=== PATIENT | female | born 1990 | race Caucasian/White ===

== ENCOUNTER 2020-11-29 15:40 | Inpatient (IN) ==
[2020-11-29] MEDS ORDERED: Lidocaine 1% 20 ML MDV INFILT PRN (18:49)
[2020-11-29] MEDS ORDERED: Naloxone 0.4 MG/ML INJ IVP PRN (18:49)
[2020-11-29] MEDS ORDERED: *HR* FentaNYL (PF) 100 MCG/2 ML VIAL IVP PRN (18:49)
[2020-11-29] MEDS ORDERED: Famotidine 20 MG/2 ML VIAL IVP PRN (18:49)
[2020-11-29] MEDS ORDERED: Metoclopramide 10 MG/2 ML VIAL IVP PRN (18:49)
[2020-11-29] MEDS ORDERED: Azithromycin 500 MG in 0.9 % Sodium Chloride 250 ML IVPB ONE (18:49)
[2020-11-29] MEDS ORDERED: Ondansetron 4 MG/2 ML VIAL IVP PRN ×2 (18:49→22:00)
[2020-11-29] MEDS ORDERED: Ringers Solution, Lactated 1,000 ML IVC SCH (19:00)
[2020-11-29 19:16] LABS: Basophils % 0.3 %; Eosinophils # 0.1 K/mcL (0.0-0.6); Eosinophils % 1.2 %; Hematocrit 33.9 % (35.3-44.9); Hemoglobin 11.4 g/dL (11.5-15.4); Immature Granulocytes % 0.7 % (0-4); Lymphocytes # 2.3 K/mcL (0.6-4.6); Lymphocytes % 19.4 %; Mean Corpuscular HGB Conc 33.6 g/dL (31.6-35.5); Mean Corpuscular Hemoglobin 32.9 pg (28.0-33.3); Mean Platelet Volume 12.2 fL (9.4-12.4); Monocytes # 0.5 K/mcL (0.0-1.3); Monocytes % 4.2 %; Neutrophils # 8.8 K/mcL (1.6-8.9); Platelet Count 202 K/mcL (140-400); Red Blood Count 3.46 M/mcL (3.82-4.97); Red Cell Distribution Width 12.3 % (11.5-14.5); Segmented Neutrophils % 74.2 %; White Blood Count 11.8 K/mcL (4.3-11.1)
[2020-11-29] MEDS ORDERED: Ropivacaine/PF 0.2% 20 ML VIAL EP ONE (19:22)
[2020-11-29] MEDS ORDERED: EPHEDrine 50 MG/ML VIAL IVP PRN (19:22)
[2020-11-29] MEDS ORDERED: *HR* FentaNYL (PF) 100 MCG/2 ML VIAL EP ONE (19:22)
[2020-11-29] MEDS ORDERED: Ropivacaine/PF 0.2% 20 ML VIAL ONE (19:26)
[2020-11-29] MEDS ORDERED: *HR* FentaNYL (PF) 100 MCG/2 ML VIAL ONE ×4 (19:26→21:32)
[2020-11-29] MEDS ORDERED: Oxytocin 20 units/ LR 1000 mL 20 UNIT/1,000 ML BAG IVC SCH (19:30)
[2020-11-29] MEDS ORDERED: Epidural Premix (fent/bupiv) 110 ML EP SCH (19:30)
[2020-11-29 19:32] LABS: Amphetamine Screen,Urine Negative ng/mL (Cutoff=1000); Barbiturate Screen,Urine Negative ng/mL (Cutoff=200); Benzodiazepines Screen,Urine Negative ng/mL (Cutoff=200); Cannabinoid Screen,Urine Negative ng/mL (Cutoff = 50); Cocaine Screen,Urine Negative ng/mL (Cutoff= 300); Opiate Screen,Urine Negative ng/mL (Cutoff=300); Phencyclidine Screen,Urine Negative ng/mL (Cutoff=25)
[2020-11-29] MEDS ORDERED: *HR* Midazolam HCl 2 MG/2 ML VIAL ONE (21:27)
[2020-11-29] MEDS ORDERED: *HR* Oxytocin 10 UNIT/ML VIAL IM ONE (21:29)
[2020-11-29] MEDS ORDERED: Chloroprocaine/PF 20 ML VIAL INFILT ONE (21:29)
[2020-11-29] MEDS ORDERED: *HR* Morphine Sulfate/PF 10 MG/10 ML AMPUL ONE (21:30)
[2020-11-29] MEDS ORDERED: Acetaminophen IV 1,000 MG/100 ML BAG IVPB ONE (21:47)
[2020-11-29] MEDS ORDERED: *HR* HYDROmorphone PF 0.5 MG/0.5 ML SYRINGE IVP PRN (22:00)
[2020-11-29] MEDS ORDERED: *HR* HYDROMORPHONE 2 MG/ML VIAL ONE (23:26)
[2020-11-30] MEDS ORDERED: Ringers Solution, Lactated 1,000 ML IVC SCH (00:34)
[2020-11-30] MEDS ORDERED: Sennosides 8.6 MG TABLET PO PRN (00:34)
[2020-11-30] MEDS ORDERED: Rho Immune Globulin 1,500 UNIT SYRINGE IM ONE (00:34)
[2020-11-30] MEDS ORDERED: Metoclopramide 10 MG/2 ML VIAL IVP PRN (00:34)
[2020-11-30] MEDS ORDERED: Oxytocin 20 units/ LR 1000 mL 20 UNIT/1,000 ML BAG IVC SCH (00:34)
[2020-11-30] MEDS ORDERED: Ondansetron 4 MG/2 ML VIAL IVP PRN (00:34)
[2020-11-30] MEDS ORDERED: Simethicone 80 MG TAB.CHEW PO PRN (00:34)
[2020-11-30] MEDS: *HR* OxyCODONE/APAP 5/325 TABLET PO PRN ×7 (02:44→20:02)
[2020-11-30] MEDS: Ibuprofen 600 MG TABLET PO PRN ×5 (04:59→17:30)
[2020-11-30 05:22] LABS: Hematocrit 32.7 % (35.3-44.9); Hemoglobin 11.2 g/dL (11.5-15.4); Mean Corpuscular HGB Conc 34.3 g/dL (31.6-35.5); Mean Corpuscular Hemoglobin 33.2 pg (28.0-33.3); Red Blood Count 3.37 M/mcL (3.82-4.97); Red Cell Distribution Width 12.3 % (11.5-14.5); White Blood Count 14.6 K/mcL (4.3-11.1)
[2020-11-30 05:23] LABS: Basophils # 0.1 K/mcL (0.0-0.2); Basophils % 0.3 %; Eosinophils # 0.1 K/mcL (0.0-0.6); Immature Granulocytes % 0.5 % (0-4); Lymphocytes # 2.4 K/mcL (0.6-4.6); Lymphocytes % 16.3 %; Mean Platelet Volume 12.3 fL (9.4-12.4); Monocytes # 0.6 K/mcL (0.0-1.3); Monocytes % 4.1 %; Neutrophils # 11.3 K/mcL (1.6-8.9); Platelet Count 174 K/mcL (140-400); Segmented Neutrophils % 77.8 %
[2020-11-30] MEDS: Prenatal Vit/FA 1 EACH TABLET PO SCH (07:33)
[2020-11-30] MEDS: metroNIDAZOLE 500 MG TABLET PO SCH ×3 (07:34→20:03)
[2020-11-30] MEDS: cephALEXin 500 MG CAPSULE PO SCH ×2 (07:36→20:03)
[2020-11-30] MEDS ORDERED: NON-FORMULARY MEDICATION 1 EACH EACH (Prenatal 19 Tablet 1 TAB) PO SCH (09:00)
[2020-12-01] MEDS: Ibuprofen 600 MG TABLET PO PRN ×4 (00:43→21:24)
[2020-12-01] MEDS: *HR* OxyCODONE/APAP 5/325 TABLET PO PRN ×6 (00:43→23:22)
[2020-12-01] MEDS: metroNIDAZOLE 500 MG TABLET PO SCH ×3 (08:49→21:23)
[2020-12-01] MEDS: cephALEXin 500 MG CAPSULE PO SCH ×3 (08:49→21:24)
[2020-12-01] MEDS: Prenatal Vit/FA 1 EACH TABLET PO SCH (08:49)
[2020-12-02] MEDS: Ibuprofen 600 MG TABLET PO PRN ×2 (04:46→10:51)
[2020-12-02] MEDS: *HR* OxyCODONE/APAP 5/325 TABLET PO PRN ×2 (04:46→09:20)
[2020-12-02 07:46] VITALS: BP 98/64
[2020-12-02] MEDS: Prenatal Vit/FA 1 EACH TABLET PO SCH (09:14)
== END 2020-12-02 12:58 | disposition home or self-care (01) | DRG 540 ==
LOC: 1NENULAB → 1NENUOBS 11-30 00:28
PROVIDERS: ADMIT Student in an Organized Health Care Education/Training Program; ATTEND Student in an Organized Health Care Education/Training Program